=== PATIENT | female | born 1960 | race Caucasian/White ===

== ENCOUNTER → 2021-01-31 | Outpatient (CLI) | payer OTHER | LOC: KOH-I 09:22 | DX: M25.551 Pain in right hip (principal) | CPT/HCPCS: 73522 ==

== ENCOUNTER → 2021-04-08 | Outpatient (CLI) | payer OTHER | LOC: KOH-I 09:51 | DX: M25.551 Pain in right hip (principal); Z68.30 Body mass index [BMI] 30.0-30.9, adult | CPT/HCPCS: 73721 ==

== ENCOUNTER → 2021-04-22 | Outpatient (CLI) | payer OTHER | LOC: CT 10:29 | DX: N83.209 Unspecified ovarian cyst, unspecified side (principal); R93.7 Abnormal findings on diagnostic imaging of other parts of musculoskeletal system; R19.00 Intra-abdominal and pelvic swelling, mass and lump, unspecified site | CPT/HCPCS: 36415; 82565; 84520; Q9967 ==

== ENCOUNTER → 2021-07-04 | Outpatient (CLI) | payer OTHER ==
[~2021-07-04] MED LIST: ALEVE220 M1 PO; CRESTOR20 MG PO; FLUTICASONE SPRAY; PROZAC20 MG PO; SINGULAIR10 MG PO; WELLBUTRIN SR150 MG PO
[2021-07-04 09:53] LABS: RED BLOOD COUNT 4.53 M/UL (4.00-5.10); WHITE BLOOD COUNT 7.6 K/UL (4.5-11.0)
== END ==
LOC: OPSV2 09:00
PROVIDERS: Obstetrics & Gynecology
DX: Z01.818 Encounter for other preprocedural examination (principal); R10.2 Pelvic and perineal pain
CPT/HCPCS: 71046; 81001; 85025; 93005

== ENCOUNTER → 2021-08-12 | Outpatient (CLI) | payer BC, OTHER ==
[~2021-08-12] MED LIST changes: +COLACE100 MG PO; +IBUPROFEN800 MG PO; +PERCOCET 5/325 T1 EA PO
[2021-08-12 10:32] LABS: HEMOGLOBIN 14.6 gm/dl (12.3-15.3); RED BLOOD COUNT 4.82 M/UL (4.00-5.10); WHITE BLOOD COUNT 7.6 K/UL (4.5-11.0)
== END ==
LOC: OPSV2 09:00
PROVIDERS: Obstetrics & Gynecology
DX: Z01.812 Encounter for preprocedural laboratory examination (principal); R10.2 Pelvic and perineal pain
CPT/HCPCS: 36415; 81001; 85025

== ENCOUNTER → 2021-08-14 | Day surgery (SDC) | payer BC, OTHER | END | disposition home or self-care (01) | LOC: OR 05:19 | DX: N83.201 Unspecified ovarian cyst, right side (principal); E78.5 Hyperlipidemia, unspecified; F32.A Depression, unspecified; Z20.822 Contact with and (suspected) exposure to COVID-19; Z98.51 Tubal ligation status; Z90.710 Acquired absence of both cervix and uterus | CPT/HCPCS: 71045; 93005; J0690; J1100; J1170; J1885; J2001; J2250; J2270; J2405; J2704; J2710; J3010; J7120 ==

== ENCOUNTER 2021-09-17 12:51 | Emergency (ER) | payer OTHER ==
[2021-09-17] MEDS ORDERED: IBUPROFEN600 MG PO (15:10)
== END 2021-09-17 15:36 | disposition home or self-care (01) ==
LOC: ER1 12:51
DX: S63.502A Unspecified sprain of left wrist, initial encounter (principal); R22.0 Localized swelling, mass and lump, head; E78.00 Pure hypercholesterolemia, unspecified; F17.210 Nicotine dependence, cigarettes, uncomplicated; W01.10XA Fall on same level from slipping, tripping and stumbling with subsequent striking against unspecified object, initial encounter; Y99.0 Civilian activity done for income or pay
CPT/HCPCS: 70486; 73100; 73130; 73564; 99283

== ENCOUNTER → 2022-04-08 | Outpatient (CLI) | payer BC, MEDICARE ==
[~2022-04-08] MED LIST changes: +IBUPROFEN600 MG PO
== END ==
LOC: KOH-I 10:13
DX: F17.210 Nicotine dependence, cigarettes, uncomplicated (principal)
CPT/HCPCS: 71271